=== PATIENT | male | born 1985 | race Caucasian/White ===

== ENCOUNTER → 2025-07-17 14:35 | Outpatient (BNVA) | payer OTHER, SELFPAY | PROVIDERS: Visit Provider Physician Assistant | DX: S46.911D Strain of unspecified muscle, fascia and tendon at shoulder and upper arm level, right arm, subsequent encounter (principal); X58.XXXD Exposure to other specified factors, subsequent encounter | CPT/HCPCS: 73030; 99204 ==

== ENCOUNTER → 2025-07-25 09:24 | Outpatient (BNVA) | payer OTHER, SELFPAY | PROVIDERS: Visit Provider Physician Assistant | DX: S46.911D Strain of unspecified muscle, fascia and tendon at shoulder and upper arm level, right arm, subsequent encounter (principal); X58.XXXD Exposure to other specified factors, subsequent encounter | CPT/HCPCS: 99213 ==

== ENCOUNTER → 2025-08-08 08:59 | Outpatient (BNVA) | payer OTHER, SELFPAY | PROVIDERS: Visit Provider Physician Assistant | DX: S46.911D Strain of unspecified muscle, fascia and tendon at shoulder and upper arm level, right arm, subsequent encounter (principal); X58.XXXD Exposure to other specified factors, subsequent encounter | CPT/HCPCS: 99213 ==

== ENCOUNTER 2025-08-21 18:24 | Outpatient (REF) | payer OTHER, SELFPAY ==
--- NOTE | ~2025-08-21 | MR_ITS ---
EXAMINATION: MR SHOULDER WITHOUT CONTRAST, RIGHT CLINICAL INFORMATION: Pain in A/C biceps tendon COMPARISON: None available. TECHNIQUE: MRI of the shoulder without contrast was performed on a high-field scanner. FINDINGS: ROTATOR CUFF: Supraspinatus: Mild tendinosis Infraspinatus: Mild tendinosis Teres minor: Intact. Subscapularis: Mild-moderate distal tendinosis, mild deep surface fraying No muscle atrophy or fatty infiltration. BICEPS: Possible mild proximal biceps tendinosis CORACOACROMIAL ARCH: The undersurface of the acromion is curved with no subacromial spur. Moderate AC joint arthritis. There is edema and cysts in the distal clavicle and acromion.. Trace subacromial subdeltoid bursal fluid. LABRUM/CAPSULE: No displaced labral tear seen. GLENOHUMERAL JOINT/MARROW: Degenerative-appearing cyst/edema in the lesser tuberosity. No acute fracture. No suspicious marrow signal changes. No significant effusion. MR/MR shoulder RT wo con IMPRESSION: * Mild supraspinatus and subscapularis tendinosis. * Mild-moderate distal subscapularis tendinosis, mild deep surface fraying * Moderate acromioclavicular arthritis. * Additional findings and details as above. Electronically signed by: Warren Hauser MD 08/22/2025 07:59 AM EST
== END 2025-08-21 18:25 | disposition home or self-care (01) ==
LOC: HO.MRI 18:24
PROVIDERS: PCP Family Medicine; Visit Provider Internal Medicine
DX: M25.511 Pain in right shoulder (principal)
CPT/HCPCS: 73221

== ENCOUNTER → 2025-08-21 18:25 | Outpatient (BNV) | payer OTHER, SELFPAY | PROVIDERS: PCP Family Medicine; Visit Provider Radiology Diagnostic Ultrasound | DX: M19.011 Primary osteoarthritis, right shoulder (principal); M75.31 Calcific tendinitis of right shoulder | CPT/HCPCS: 73221 ==

== ENCOUNTER 2025-09-01 12:51 | Outpatient (AMB) | payer OTHER, SELFPAY ==
--- NOTE | 2025-09-01 12:55 | MHC.OFFVIS ---
Vital Signs 09/01/25 13:04 Height 5 ft 10 in Weight 150 lb BMI 21.5 Intake Visit Reasons: New Pt -WC- right shoulder injury 06/26/25 Intake Note: Jose is a 40 year old right hand dominant male who presents today as a New Patient for evaluation of his Right Shoulder. This is a Work Related Injury from 06/26/25 while wearing a backpack and lifted the stair chair to put back in a the ambulance - after this action he has had pain at the top of the shoulder. Pain is increased with reaching across the body, shrugging and sleeping on the right side. He was seen at the work connection who prescribed Naproxen. MRI done at [facility] [place]. Currently he reports that the shoulder is getting better but he feels like he keeps re-injuring it or setting himself back with routine movements. At this time he is out of work. IMPRESSION: * Mild supraspinatus and subscapularis tendinosis. * Mild-moderate distal subscapularis tendinosis, mild deep surface fraying * Moderate acromioclavicular arthritis. * Additional findings and details as above. Allergies No Known Allergies (No Known Allergies*) Allergy (Unverified 06/18/20 15:38) HPI HPI New Pt -WC- right shoulder injury 06/26/25: Details: Jose is a 40 year old right hand dominant male who presents today as a New Patient for evaluation of his Right Shoulder. This is a Work Related Injury from 06/26/25 while wearing a backpack and lifted the stair chair to put back in a the ambulance - after this action he has had pain at the top of the shoulder. Pain is increased with reaching across the body, shrugging and sleeping on the right side. He was seen at the work connection who prescribed Naproxen. MRI done at [facility] [place]. Currently he reports that the shoulder is getting better but he feels like he keeps re-injuring it or setting himself back with routine movements. At this time he is out of work. [facility] Social History (Updated 09/01/25 @ 13:08 by Ashlyn Keller CMA) Current occupational status: employed Current occupation: [employer] Physical Exam Exam Exam: No acute distress Mild prominence of the right AC joint with tenderness to palpation along the anterior aspect of the acromioclavicular joint. Pain with cross-body adduction Mildly positive Bear and Neer Negative empty can but pain Vital Signs: BMI result Body Mass Index 21.5 Results Reviewed Results Reviewed: I personally reviewed the MR images. IMPRESSION: * Mild supraspinatus and subscapularis tendinosis. * Mild-moderate distal subscapularis tendinosis, mild deep surface fraying * Moderate-severe acromioclavicular arthritis. Assessment & Plan Assessment & Plan (1) Acromioclavicular arthrosis: Code(s): M19.019 - Primary osteoarthritis, unspecified shoulder Category: Medical Plan: MRI and clinical exam and history are consistent with AC joint arthrosis. Continue OOW. PT for elisha scapular strengthening.Naprosyn BID and return to see me in 4 weeks. Goal at that time is RTW. Orders: Orders PT Evaluation and Treatment Today M19.019 - Primary osteoarthritis, unspecified shoulder Coding Level of Care Code New Pt Level 3 (87176) Diagnoses Acromioclavicular arthrosis M19.019
[2025-09-01 13:04] VITALS: BMI 21.5
== END 2025-09-01 13:40 | disposition home or self-care (01) ==
LOC: HO.HOS 12:51
PROVIDERS: PCP Family Medicine; Visit Provider Orthopaedic Surgery
DX: M19.011 Primary osteoarthritis, right shoulder (principal)
CPT/HCPCS: 99203

== ENCOUNTER → 2025-09-01 12:51 | Outpatient (BNVA) | payer OTHER, SELFPAY | PROVIDERS: PCP Family Medicine; Visit Provider Orthopaedic Surgery | DX: M19.011 Primary osteoarthritis, right shoulder (principal) | CPT/HCPCS: 99202 ==